=== PATIENT | male | born 1990 | race Caucasian/White ===

== ENCOUNTER 2017-05-17 13:45 | Emergency (ER) | payer OTHER ==
[~2017-05-17] VITALS: Ht 165.1 cm; Wt 105.0 kg
[2017-05-17 13:50] VITALS: BP 138/81
== END 2017-05-17 14:52 | disposition home or self-care (01) ==
LOC: ED 14:39
DX: K08.89 Other specified disorders of teeth and supporting structures (principal)
CPT/HCPCS: 99283